=== PATIENT | male | born 1985 | race Asian ===

== ENCOUNTER 2018-01-01 14:36 | Emergency (ER) | payer OTHER ==
[2018-01-01] MEDS ORDERED: Amoxicillin/Clavulanate TAB* 875 MG PO ONE ×2 (16:45)
[2018-01-01 17:02] VITALS: BP 136/80
--- NOTE | 2018-01-01 22:05 | ED ---
Primo Ulloa Stephanie, scribed for Cristiano Bell MD on 01/01/18 at 1658 . GI/ HPI - HPI Summary HPI Summary: The pt is a 32 y/o M presenting to the ED with c/o a lump near the anus that began on 12/25/17. The pt states 4 days ago it became painful. The pt states that this morning his pain was a 9 in severity when he went to the bathroom. The pt states he feels itching in the internal anus. - History of Current Complaint Chief Complaint: EDUrogenitalProblems Time Seen by Provider: 01/01/18 16:25 Stated Complaint: CYSTS ON BUTTOCKS AERA Hx Obtained From: Patient Onset/Duration: Started Weeks Ago - 1, Still Present Timing: Constant Current Severity: Moderate Pain Intensity: 7 Location of Pain: Anal Pain Characteristics: Itching - internal anus Aggravating Factor(s): Nothing Alleviating Factor(s): Nothing - Allergy/Home Medications Allergies/Adverse Reactions: Allergies Allergy/AdvReac Type Severity Reaction Status Date / Time No Known Allergies Allergy Verified 01/01/18 14:44 PMH/Surg Hx/FS Hx/Imm Hx Endocrine/Hematology History: Reports: Other Endocrine/Hematological Disorders - borderline diabetes Musculoskeletal History: Denies: Hx Rheumatoid Arthritis, Hx Osteoporosis - Surgical History Surgery Procedure, Year, and Place: NONE Infectious Disease History: No Infectious Disease History: Denies: Traveled Outside the [place] in Last 30 Days - Family History Known Family History: Positive: Diabetes - Social History Occupation: Student Lives: Dormitory/Roommates Alcohol Use: None Substance Use Type: Reports: None Smoking Status (MU): Never Smoked Tobacco Review of Systems Negative: Fever Positive: Other - anal pain All Other Systems Reviewed And Are Negative: Yes Physical Exam - Summary Physical Exam Summary: General: well-appearing, no pain distress Skin: warm, color reflects adequate perfusion, dry Head: normal Eyes: EOMI, MITZY ENT: normal Neck: supple, nontender Respiratory: CTA, breath sounds present Cardiovascular: RRR Abdomen: soft, nontender Bowel: present Musculoskeletal: normal, strength/ROM intact Neurological: normal, sensory/motor intact, A&O x3 Psychological: affect/mood appropriate Rectal Exam: 7 mm*3 mm perianal swelling. No erythema, mildly tender to palpation, firm but not hard, appears to be an athrombosed hemorrhoid Triage Information Reviewed: Yes Vital Signs On Initial Exam: Initial Vitals Temp Pulse Resp BP Pulse Ox 98.0 F 84 16 136/83 100 01/01/18 14:42 01/01/18 14:42 01/01/18 14:42 01/01/18 14:42 01/01/18 14:42 Vital Signs Reviewed: Yes Diagnostics - Vital Signs Vital Signs Temp Pulse Resp BP Pulse Ox 01/01/18 14:42 98.0 F 84 16 136/83 100 - Laboratory Lab Statement: Any lab studies that have been ordered have been reviewed, and results considered in the medical decision making process. GIGU Course/Dx - Course Course Of Treatment: BP noted and advised to follow up with PCP. THE SWETHA ANAL SWELLING IS NON ERYTHEMATOUS. PAIN HAS DECREASED RECENTLY. NO SIGNS OF INFECTION. TREAT HEMORRHOID BUT, DISCUSSED GETTING RECHECKED RIGHT AWAY IF ANY SIGNS OF INFECTION. F/U PMD; SURGERY IF NOT IMPROVED; RETURN TO ED IF WORSE. - Diagnoses Provider Diagnoses: Elevated blood pressure reading without diagnosis of hypertension, Hemorrhoid Discharge - Discharge Plan Condition: Stable Disposition: HOME Prescriptions: Amoxicillin/Clavulanate TAB* [Augmentin TAB 875*] 875 mg PO BID #18 tab Hydrocortisone/Pramoxine [Proctofoam Hc 1-1 %] 1 applic TOPICAL TID PRN #1 tube PRN Reason: Pain Patient Education Materials: Hemorrhoids (ED) Referrals: Teddy Hook MD [Primary Care Provider] - Additional Instructions: FOLLOW UP WITH YOUR PRIMARY CARE DOCTOR AND, IF THE HEMORRHOID DOES NOT IMPROVE , WITH SURGERY. RETURN TO THE EMERGENCY DEPARTMENT FOR ANY WORSENING OF YOUR CONDITION; PAIN, FEVER, YOU FEEL ILL OR QUESTIONS OR CONCERNS. YOUR BLOOD PRESSURE WAS ELEVATED TODAY; FOLLOW UP WITH YOUR PRIMARY CARE DOCTOR WITHIN THE NEXT 1 WEEK. The documentation as recorded by the Primo coker Stephanie accurately reflects the service I personally performed and the decisions made by me, Cristiano Bell MD.
== END 2018-01-01 16:58 | disposition home or self-care (01) ==
LOC: ED 14:36
DX: K64.9 Unspecified hemorrhoids (principal); R03.0 Elevated blood-pressure reading, without diagnosis of hypertension; R73.03 Prediabetes
CPT/HCPCS: 99282; A9270-GY

== ENCOUNTER 2018-01-03 16:12 | Emergency (ER) | payer OTHER ==
--- NOTE | 2018-01-03 17:01 | ED ---
Skin Complaint - HPI Summary HPI Summary: 32 male presents to ED with complaints of pain with new onset of bright red bleeding and some discharge from anus. States he was seen here on 01/01 and diagnosed with hemorrhoid. States just today the painful area began bleeding and had some discharge. States it is painful to sit and go to the bathroom. Denies any other complaints. Has had abscesses before. Denies MRSA history and no fever. No other rash or complaints. No PMHx other than HTN. Just began taking antibiotic, augmentin yesterday given at last visit and take ibuprofen for pain. - History of Current Complaint Chief Complaint: EDGeneral Time Seen by Provider: 01/03/18 16:40 Stated Complaint: BLEEDING, SEEN ON 01/01 Hx Obtained From: Patient Onset/Duration: Started Days Ago, Still Present Skin Exposure Onset/Duration: Days Ago Timing: Constant Onset Severity: Moderate Current Severity: Moderate Pain Intensity: 8 Pain Scale Used: 0-10 Numeric Skin Location: Other: - anus/rectum Aggravating Symptom(s): Touch - going to the bathroom, sitting Alleviating Symptom(s): Nothing Associated Signs & Symptoms: Negative - Allergy/Home Medications Allergies/Adverse Reactions: Allergies Allergy/AdvReac Type Severity Reaction Status Date / Time No Known Allergies Allergy Verified 01/01/18 14:44 PMH/Surg Hx/FS Hx/Imm Hx Endocrine/Hematology History: Reports: Other Endocrine/Hematological Disorders - borderline diabetes Musculoskeletal History: Denies: Hx Rheumatoid Arthritis, Hx Osteoporosis - Surgical History Surgery Procedure, Year, and Place: NONE - Immunization History Immunizations Up to Date: Yes Infectious Disease History: No Infectious Disease History: Denies: Traveled Outside the [place] in Last 30 Days - Family History Known Family History: Positive: Diabetes - Social History Alcohol Use: None Substance Use Type: Reports: None Smoking Status (MU): Never Smoked Tobacco Review of Systems Constitutional: Negative Cardiovascular: Negative Respiratory: Negative Musculoskeletal: Negative Positive: Other - perianal abscess versus hemorrhoid All Other Systems Reviewed And Are Negative: Yes Physical Exam Triage Information Reviewed: Yes Vital Signs On Initial Exam: Initial Vitals Temp Pulse Resp BP Pulse Ox 97.5 F 89 18 121/72 98 01/03/18 16:20 01/03/18 16:20 01/03/18 16:20 01/03/18 16:20 01/03/18 16:20 Vital Signs Reviewed: Yes Appearance: Positive: Well-Appearing, No Pain Distress, Well-Nourished Skin: Positive: Warm, Skin Color Reflects Adequate Perfusion, Dry, Other - dime size minimally swollen, firm/indurated perianal area with minimal bleeding/ clear to yellow drainage without fluctuance or abscess formation without surrounding cellulitis. does not appear to be a hemorrhiod although is in the same area and looks similar. TTP. not obstructing rectal outlet. Negative: Cold , Soft, Mass @ Head/Face: Positive: Normal Head/Face Inspection Neck: Positive: Supple Respiratory/Lung Sounds: Positive: Clear to Auscultation, Breath Sounds Present. Negative: Rales, Rhonchi, Wheezes Cardiovascular: Positive: Normal, RRR, Pulses are Symmetrical in both Upper and Lower Extremities. Negative: Murmur, Rub Musculoskeletal: Positive: Normal, Strength/ROM Intact Neurological: Positive: Normal, Sensory/Motor Intact, Alert, Oriented to Person Place, Time Diagnostics - Vital Signs Vital Signs Temp Pulse Resp BP Pulse Ox 01/03/18 16:20 97.5 F 89 18 121/72 98 - Laboratory Lab Statement: Any lab studies that have been ordered have been reviewed, and results considered in the medical decision making process. Course/Dx - Course Course Of Treatment: appears to be suffering from possible small perianal abscess due to drainage. already taking augmentin. wond culture obtained and pending results to ensure it is sensitive to augmentin. patient just began taking antibiotic yesterday. ibuprofen for pain, warm compresses and sitz baths. nothing to I&D at this time. aware of worsening signs and symptoms. no known MRSA histroy. Follow up with surgery if worsens, has PCP appointment tomorrow. No other complaints. - Differential Diagnoses - Skin Complaint Differential Diagnoses: Abscess, Cellulitis, Other - hemorrhoid - Diagnoses Provider Diagnoses: Perianal abscess Discharge - Discharge Plan Condition: Good Disposition: HOME Patient Education Materials: Anorectal Abscess and Anal Fistula (ED) Referrals: Teddy Hook MD [Primary Care Provider] - Sixto Meyer MD [Medical Doctor] - Additional Instructions: Continue taking antibiotic as directed until entire dose is completed. Warm compresses and SITZ baths. Keep clean and dry. Let drain. Follow up with PCP for recheck. Ibuprofen for pain 600mg every 6 hours with food. Any new or worsening symptoms please seek medical attention promptly.
[2018-01-03 17:17] VITALS: BP 117/66
== END 2018-01-03 17:14 | disposition home or self-care (01) ==
LOC: ED 16:12
DX: K61.0 Anal abscess (principal); R73.03 Prediabetes
CPT/HCPCS: 87070; 87205; 99282

== ENCOUNTER → 2018-01-27 | Day surgery (SDC) | payer OTHER ==
[~2018-01-27] MED LIST: Acetaminophen TAB* 325 MG PO PRN; Buffered Lidocaine 0.9% SYRIN* 5 ML/SYR SYRINGE INTRADERM ONE; Bupivacaine 0.5% SDV PF* 30ML VIAL ONE; Chloroprocaine 3%* 20 ML VIAL ONE; Ibuprofen TAB* 400 MG ONE; Ibuprofen TAB* 400 MG PO ONE; Lidocaine 1% MPF wEPI 200,000* 30 ML SDV ONE; Lidocaine 2% JELLY* 6 ML JELLY TOPICAL ONE; Midazolam* 1 MG/ML 5 ML VIAL (5 MG) ONE; Naloxone* 0.4 MG/ML 1 ML VIAL IV PRN; Sodium Chloride 0.9%* 10 ML ONE; Sodium Citrate/Citric Acid* 15 ML UDC ONE; Sodium Citrate/Citric Acid* 15 ML UDC PO ONE; Sterile Water for Inj* 10 ML ONE; diPHENhydraMINE IV* 50 MG/ML 1 ml VIAL (BENADRYL) IV PRN; fentaNYL* 50 MCG/ML 2 ML VIAL (100 MCG VIAL) IV PRN; fentaNYL* 50 MCG/ML 2 ML VIAL (100 MCG VIAL) ONE; oxyCODONE TAB* 5 MG TAB PO PRN
--- NOTE | 2018-01-27 12:29 | BRIEFOPN ---
Brief Operative Note - Surgery Procedures: OPERATIVE REPORT PRE-OP: Anal abscess POST-OP: Same, anal fistula PROCEDURE:Anorectal exam under anesthesia with seton suture placement SURGEON: MD Erica ANESTHESIA:Local with MAC/ Spinal Dr. Mora ASST: none IVF: min EBL: min SPECIMEN: none DRAIN: 2 blue vessel loops placed as seton sutures WOUND CLASS: 4 COMPLICATIONS: none TO PACU
[2018-01-27 14:38] VITALS: BP 139/68
--- NOTE | 2018-01-28 14:06 | OP ---
DATE OF OPERATION: 01/27/18 - FOR[facility]LY [facility] DATE OF : 87 SURGEON: Min Maldonado MD SHOE IRONER: None. ANESTHESIOLOGIST: Dr. Mora. ANESTHESIA: Local with spinal anesthetic and monitored anesthesia care with Dr. Mora. PRE-OP DIAGNOSIS: Anorectal abscess. POST-OP DIAGNOSIS: Anorectal abscess with posterior anal fistula. OPERATIVE PROCEDURE: Anorectal exam under anesthesia with placement of seton sutures. ESTIMATED BLOOD LOSS: Minimal. SPECIMENS: None. WOUND CLASSIFICATION: Wound classification was 4. COMPLICATIONS: None. DRAINS: Seton sutures. BRIEF FINDINGS: The patient had had a chronic perianal abscess located at about the 1 o'clock position in the prone position. Exam today in the operating room revealed a communication at the posterior midline at the internal anal canal and seton sutures were placed. No other internal hemorrhoidal disease was noted and no abscess was identified. 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 He had persistent discomfort and drainage without improvement and healing with appropriate care and is now being taken to the operating room for an exam under anesthesia to assure complete drainage of the rather small abscess as well as to rule out a fistula. DESCRIPTION OF PROCEDURE: Written informed consent was obtained. No antibiotics were administered. He was taken to the operating room and placed in the prone jun- knife position after spinal anesthetic was administered. Sequential compression devices and warming blanket were applied. The perineum was prepped and draped in the usual sterile fashion. Time-out verification was completed. A 0.25% Marcaine mixed with 1% lidocaine with epinephrine was infiltrated as a normal perianal block. Digital rectal exam was performed, showed decreased tone, obvious secondary to the spinal, but no evidence of mass or blood. Anoscopy revealed no evidence of significant internal hemorrhoidal disease and the distal rectal mucosa appeared to be normal. The chronic abscess drainage site in question was at about the 2 o'clock and there was granulation tissue and this was excised sharply with a cautery to expose the underlying small abscess cavity, which had granulation tissue. This was debrided with a curette. It was rather superficial; however, and using an injection with an Angiocath IV cath of hydrogen peroxide, there was some extravasation through the posterior midline in the anal canal and I used a small probe to identify the tract that easily passed into the internal canal through the external opening consistent with an anal fistula. This was at about the level of the dentate line obviously where the anal crypts were resided. I then placed 2 blue vessel loops through the fistula and ligated these with 0 silk ties. Additional Marcaine was infiltrated. No other abnormality was noted. Dry sterile dressings were applied. The patient tolerated the procedure well, was taken to the recovery room in a stable condition. [id number]/[facility] #: [id number] CHRIS
== END | disposition home or self-care (01) ==
LOC: OR 09:35
PROVIDERS: ATTEND Surgery
DX: K61.2 Anorectal abscess (principal)
CPT/HCPCS: A9270-GY; J2001; J2250; J2400; J3010

== ENCOUNTER 2019-03-31 17:36 | Emergency (ER) | payer OTHER ==
[2019-03-31 17:52] VITALS: BP 133/79
--- NOTE | 2019-03-31 17:58 | UC ---
Eye Complaint HPI - HPI Summary HPI Summary: 10 days of eye itching and redness, nasal drainage and congestion, morning sore throat has been using claritin and visine eye drops---no visual defects does nt wear contact lens - History of Current Complaint Chief Complaint: UCEye Stated Complaint: eye irritation Time Seen by Provider: 03/31/19 17:51 Hx Obtained From: Patient Onset/Duration: Gradual Onset, Lasting Days - 10, Still Present Timing: Constant Pain Intensity: 0 Location of Injury: Conjunctiva Aggravating Factor(s): Nothing Alleviating Factor(s): Nothing Associated Signs And Symptoms: Positive: Negative - Allergies/Home Medications Allergies/Adverse Reactions: Allergies Allergy/AdvReac Type Severity Reaction Status Date / Time No Known Allergies Allergy Verified 03/31/19 17:48 Home Medications: Home Medications ALPRAZolam TAB* [Xanax TAB*] 0.25 mg PO Q6H PRN 03/31/19 [History Confirmed 11/18] Escitalopram * [Lexapro 10 mg (NF)] 10 mg PO DAILY 03/31/19 [History Confirmed 03/31/19] PMH/Surg Hx/FS Hx/Imm Hx Previously Healthy: No Psychological History: Anxiety - Surgical History Surgical History: Yes Surgery Procedure, Year, and Place: fistula surgey 2018 - Family History Known Family History: Positive: Diabetes - Social History Occupation: Employed Full-time Lives: Alone Alcohol Use: Rare Substance Use Type: None Smoking Status (MU): Never Smoked Tobacco Review of Systems All Other Systems Reviewed And Are Negative: Yes Constitutional: Positive: Negative Skin: Positive: Negative Eyes: Positive: Eye Redness ENT: Positive: Sore Throat, Nasal Discharge, Sinus Congestion Respiratory: Positive: Negative Cardiovascular: Positive: Negative Gastrointestinal: Positive: Negative Genitourinary: Positive: Negative Motor: Positive: Negative Neurovascular: Positive: Negative Musculoskeletal: Positive: Negative Neurological: Positive: Negative Psychological: Positive: Negative Is Patient Immunocompromised?: No Physical Exam Triage Information Reviewed: Yes Appearance: Well-Appearing, No Pain Distress, Well-Nourished Vital Signs: Initial Vital Signs Temp 97.4 F 03/31/19 17:48 Pulse 104 03/31/19 17:48 Resp 14 03/31/19 17:48 BP 133/79 03/31/19 17:48 Pulse Ox 98 06/01/19 17:48 Vital Signs Reviewed: Yes Eye Exam: Normal Eyes: Positive: Conjunctiva Inflamed ENT Exam: Normal ENT: Positive: Normal ENT inspection, Hearing grossly normal, Pharynx normal, Nasal congestion, Nasal drainage, TMs normal, Uvula midline. Negative: Tonsillar swelling, Tonsillar exudate, Trismus, Muffled voice, Hoarse voice, Dental tenderness, Sinus tenderness Dental Exam: Normal Neck exam: Normal Neck: Positive: Supple, Nontender, No Lymphadenopathy Respiratory Exam: Normal Respiratory: Positive: Chest non-tender, Lungs clear, Normal breath sounds, No respiratory distress, No accessory muscle use Cardiovascular Exam: Normal Cardiovascular: Positive: RRR, No Murmur, Pulses Normal, Brisk Capillary Refill Musculoskeletal Exam: Normal Musculoskeletal: Positive: Strength Intact, ROM Intact, No Edema Neurological Exam: Normal Neurological: Positive: Alert, Muscle Tone Normal Psychological Exam: Normal Skin Exam: Normal Eye Complaint Course/Dx - Course Course Of Treatment: Zaditor,flonase continue claritin, increase fluids follow with pcp if no improvement or worsening in any way - Differential Dx/Diagnosis Provider Diagnosis: Allergic conjunctivitis and rhinitis Discharge - Sign-Out/Discharge Documenting (check all that apply): Patient Departure All imaging exams completed and their final reports reviewed: No Studies - Discharge Plan Condition: Stable Disposition: HOME Prescriptions: Fluticasone NASAL SPRAY 50MCG* [Flonase NASAL SPRAY 50MCG*] 2 spray BOTH NARES DAILY #1 btl Ketotifen Fumarate [Zaditor] 0.025 % OP BID #5 ml Patient Education Materials: Allergic Rhinitis (DC), Conjunctivitis (ED) Referrals: Teddy Hook MD [Primary Care Provider] - If Needed - Billing Disposition and Condition Condition: STABLE Disposition: Home
== END 2019-03-31 18:11 | disposition home or self-care (01) ==
LOC: UCEAST 17:36
DX: H10.10 Acute atopic conjunctivitis, unspecified eye (principal); J31.0 Chronic rhinitis; F41.9 Anxiety disorder, unspecified
CPT/HCPCS: 99212; G0463